=== PATIENT | female | born 1955 | race Caucasian/White ===

== ENCOUNTER 2018-03-30 10:28 | Emergency (ER) | payer OTHER, MEDICARE ==
[~2018-03-30] VITALS: Ht 154.9 cm; Wt 95.2 kg
[~2018-03-30 10:28] MED LIST: ASPI81CH PO; ASPI81EC; ATOR10; BUPR150T2; CARI350 PO; CYCL10 PO; DIPH25; DULO60 PO; GABA100 PO; GABA300 PO; GLIP10; GLIP5ER; HYDACE10B PO; HYDACE5 PO; IBUP800; IBUP800 PO; INSDET100; INSDET100 SC; INSDET100 SQ; INSUASPI; LISHYD2012 PO; LOVA40 PO; MAGCIT300 PO; METF500; METF500 PO; METF500C PO; METF850; MULVITA; Norco 10-325 T1 EACH PO; OLME20; OLME20 PO; PIOG15; PROACE100 PO; RANI150; RANI150 PO; RXDIPHSY; RXHYDACE PO; RXIBUP800 PO; RXPROACE PO; SERT50; SPIHYD; TRAZ50 PO; VERA80; [UNRECOGNIZED DRUG - OTHER]
[2018-03-30] MEDS ORDERED: Norco 5-325 Ta1 EACH PO (11:35)
== END 2018-03-30 11:39 | disposition home or self-care (01) ==
LOC: ER 10:28
DX: M54.5 Low back pain (principal); V49.50XA Passenger injured in collision with unspecified motor vehicles in traffic accident, initial encounter; Z88.5 Allergy status to narcotic agent; Z79.899 Other long term (current) drug therapy; Z79.82 Long term (current) use of aspirin; Z79.4 Long term (current) use of insulin; E11.9 Type 2 diabetes mellitus without complications; I10 Essential (primary) hypertension; Z87.891 Personal history of nicotine dependence
CPT/HCPCS: 72070; 72100; 99283-25

== ENCOUNTER → 2018-05-24 | Outpatient (CLI) | payer MEDICARE ==
[~2018-05-24] MED LIST changes: +Norco 5-325 Ta1 EACH PO
[2018-05-24 11:06] LABS: Source, Urine Clean Catch
[2018-05-24 12:40] LABS: Bilirubin, Urine Neg (Neg); Blood, Urine 5+ (Neg); Glucose Qualitative, Urine Neg (Neg); Ketones, Urine Neg (Neg); Leukocyte Esterase, Urine 3+ (Neg); Nitrite, Urine Neg (Neg); Protein, Urine 3+ (Neg); Urobilinogen, Urine NORM (Normal)
[2018-05-24 13:05] LABS: Appearance, Urine Hazy (Clear); Color, Urine Yellow (P-Yellow)
[2018-05-24 13:08] LABS: Bacteria Few /hpf; Red Blood Cells, Urine 25-50 /hpf (0-2); Squamous Epithelial Cells Few /hpf (Few); White Blood Cells, Urine 50-100 /hpf (0-5)
== END | disposition home or self-care (01) ==
LOC: LAB 11:03 → LAB SHORT 11:03 → EDSTATUS 13:02
PROVIDERS: Family Medicine
DX: N39.0 Urinary tract infection, site not specified (principal)
CPT/HCPCS: 81001

== ENCOUNTER 2018-09-05 11:48 | Inpatient (IN) | payer OTHER, MEDICARE ==
[~2018-09-05] VITALS: Ht 154.9 cm; Wt 96.8 kg
[~2018-09-05 11:48] MED LIST changes: +ASPI325EC PO; -ASPI81CH PO; -GABA100 PO; +GABA800 PO; +Glucophage1000 MG PO; -INSUASPI; +NOVOLOG FL100 UNIT/1 SC; -RANI150 PO; +TRAZ100 PO; -TRAZ50 PO; +Zantac150 MG PO
[2018-09-05 12:34] LABS: BASOPHILS ABSOLUTE AUTO 0.04 K/mm3 (0.00-0.23); BASOPHILS PERCENT AUTO 0 % (0-2); EOSINOPHILS ABSOLUTE AUTO 0.19 K/mm3 (0.00-0.68); EOSINOPHILS PERCENT AUTO 2 % (0-6); Hematocrit 39.1 % (33.0-51.0); Hemoglobin 11.9 g/dL (11.5-16.0); IMMATURE GRAN ABSOLUTE AUTO 0.02 K/mm3 (0.00-0.10); IMMATURE GRAN PERCENT AUTO 0 % (0-1); LYMPHOCYTES ABSOLUTE AUTO 3.69 K/mm3 (0.84-5.20); LYMPHOCYTES PERCENT AUTO 40 % (21-46); MONOCYTES ABSOLUTE AUTO 0.83 K/mm3 (0.16-1.47); MONOCYTES PERCENT AUTO 9 % (4-13); Mean Corpuscular HGB 26.9 pg (26.0-34.0); Mean Corpuscular HGB Conc 30.4 g/dL (31.5-36.5); Mean Corpuscular Volume 88 fL (80-100); Mean Platelet Volume 10.2 fL (9.1-12.4); NEUTROPHILS ABSOLUTE AUTO 4.41 K/mm3 (1.96-9.15); NEUTROPHILS PERCENT AUTO 48 % (41-73); Platelet Count 246 K/mm3 (150-400); RDW Standard Deviation 52.2 fL (35.1-46.3); Red Blood Cell Count 4.43 M/mm3 (3.80-5.20); White Blood Cell Count 9.18 K/mm3 (4.00-11.30)
[2018-09-05 13:01] LABS: Alanine Aminotransfer (ALT/SGP 16 U/L (12-78); Albumin, Blood 3.6 g/dL (3.4-5.0); Albumin/Globulin Ratio 1.1 (0.8-1.8); Alk Phos 57 U/L (50-136); Anion Gap 4 mmol/L (6-16); Aspartate Aminotrans (AST/SGOT 12 U/L (12-37); Bilirubin, Total 0.4 mg/dL (0.1-1.0); Blood Urea Nitrogen 18 mg/dL (8-24); Bun/Creatinine Ratio 19.9 (12.0-20.0); CO2, Blood 27 mmol/L (21-32); Chloride, Blood 108 mmol/L (98-108); Globulin, Blood 3.3 g/dL (2.2-4.0); Glomerular Filtration Rate >60 (60-); Glucose, Blood 162 mg/dL (70-99); Potassium, Blood 5.1 mmol/L (3.5-5.5); Sodium, Blood 139 mmol/L (136-145); Total Protein, Blood 6.9 g/dL (6.4-8.2); Troponin I <0.015 ng/mL (0.000-0.040)
[2018-09-05 14:17] LABS: U Amphetamine Screen Not Detected; U Barbituate Screen Not Detected; U Benzodiazapine Screen Not Detected; U Buprenorphine Screen Not Detected; U Cannabinoids Screen DETECTED; U Cocaine Screen Not Detected; U Methadone Screen Not Detected; U Methamphetamine Screen Not Detected; U Opiates Screen Not Detected; U Oxycodone Screen Not Detected; U Phencyclidine Screen Not Detected; U Propoxyphene Screen Not Detected
[2018-09-05] MEDS ORDERED: OXYB5 PO (15:41)
[2018-09-05] MEDS ORDERED: TRULICITY0.75 MG/0. SC (15:43)
[2018-09-05] MEDS ORDERED: Benazepril HCl10 MG PO (15:44)
[2018-09-05] MEDS ORDERED: ATOR20 PO (15:45)
[2018-09-05] MEDS ORDERED: HYDCHL12.5 PO (15:45)
[2018-09-05] MEDS ORDERED: DULO30 PO (15:46)
[2018-09-06 04:54] LABS: Hemoglobin 13.2 g/dL (11.5-16.0); Mean Corpuscular HGB 26.9 pg (26.0-34.0); Mean Corpuscular HGB Conc 30.7 g/dL (31.5-36.5); Mean Corpuscular Volume 88 fL (80-100); Mean Platelet Volume 10.6 fL (9.1-12.4); Platelet Count 288 K/mm3 (150-400); RDW Coefficient Variation 15.8 % (11.7-14.2); RDW Standard Deviation 51.1 fL (35.1-46.3)
[2018-09-06 05:19] LABS: Anion Gap 4 mmol/L (6-16); Blood Urea Nitrogen 14 mg/dL (8-24); Bun/Creatinine Ratio 18.3 (12.0-20.0); CO2, Blood 25 mmol/L (21-32); Calcium, Blood 9.3 mg/dL (8.5-10.1); Chloride, Blood 111 mmol/L (98-108); Cholesterol 136 mg/dL (50-200); Creatinine, Blood 0.76 mg/dL (0.40-1.00); Glomerular Filtration Rate >60 (60-); Glucose, Blood 167 mg/dL (70-99); Potassium, Blood 4.6 mmol/L (3.5-5.5); Sodium, Blood 140 mmol/L (136-145); Triglycerides 141 mg/dL (30-160); Very Low Density Lipoprot Chol 28 mg/dL (6-32)
[2018-09-06 05:21] LABS: CHOL/HDL RATIO 3.2; HDL Cholesterol 42 mg/dL (>39); LDL/HDL RATIO 1.6; Low Density Lipoprotein Chol 66 mg/dL (0-110)
--- NOTE | 2018-09-06 05:26 | NUR ---
SHIFT SUMMARY PATIENT IS ALERT AND ORIENTED. PATIENT ARRIVED TO ROOM VIA STRETCHER. ON ROOM AIR. PATIENT AMBULATES WITH 1 ASSIST AND WALKER. PER ER REPORT PATIENT FELL OUT OF BED, SO BED ALARM HAS BEEN ON. PATIENT IS FORGETFUL WHEN ASKING FOR HELP TO GET OUT OF BED. PT DOES HAVE SLIGHT RIGHT SIDED WEAKNESS. PT IS EMOTIONAL OFF AND ON WHEN TALKING ABOUT WHY SHE CAME TO THE HOSPITAL. VITALS STABLE. NO ACUTE CHANGES NOTED.
--- NOTE | 2018-09-06 14:50 | NUR ---
NOTIFIED DR PANDEY OF ELEVATED BP AND NO PRN BP MEDICATIONS, NO NEW ORDERS AT THIS TIME. WILL CONTINUE TO MONITOR.
--- NOTE | 2018-09-06 16:02 | NUR ---
SHIFT SUMMARY PT A&OX4, FORGETFUL AND IMPULSIVE. UP IN [place] FOR MEALS. 1 PERSON ASSIST WITH FWW AND GAITBELT. RIGHT POWER LINEWORKER AND RLE WEAK, RIGHT SIDE DELAYED. PT RERPOTS CHRONIC LOWER BACK PAIN AND HIP PAIN, MEDICATED x1 WITH TYLNEOL WITH POSITIVE RESULTS. PT DENIES SOB AND N/V. PT WORKED WITH PT/OT DURING SHIFT. PLANS TO D/C TO SNF. ELEVATED BP NOTIFIED DR PANDEY, NO NEW ORDERS. OTHER VSS. NO OTHER ACUTE CHAGNES NOTED DURING SHFIT. WILL CONTINUE TO MONITOR UNTIL REPORT GIVEN TO ONCOMING RN.
--- NOTE | 2018-09-06 18:29 | NUR ---
SHE C/O HER LAC SALINE LOCK HURTING HER. I FLUSHED IT BUT IT LEAKED. SL DC'D. PROCEDURE NURSE AGREED TO START A NEW ONE. WE HAVE A NEW ORDER THIS AFTERNOON FOR PRN IV APRESOLINE FOR SBP GREATER THAN 185. LAST SBP 174. SHE IS AMBULATORY WITH 1 ASSIST. SHE REFUSED HER LOVENOX BUT HAS AGREED TO TRY JESSICA HOSE IN THE MORNING. I MEASURED HER CALF AND PUT THE PKG OF TEDS IN THE ROOM. CBG'S STABLE. SHE ATE ALL HER DINNER.
--- NOTE | 2018-09-06 18:40 | NUR ---
SHE REFUSED FOR THE PROCEDURE NURSE TO PUT A SALINE LOCK BACK IN HER. I WILL SEE IF IS STILL ON SO THAT I CAN NOTIFY HIM.
--- NOTE | 2018-09-06 18:44 | NUR ---
I SPOKE WITH . APRESOLINE CHANGED TO PO.
--- NOTE | 2018-09-07 07:15 | NUR ---
a+o with no obvious s/sx of stroke, call light in reach, walking in room, no IV room air, wants to go home with help from neighbors
--- NOTE | 2018-09-07 19:07 | NUR ---
SHIFT SUMMARY: NO ACUTE CHANGES TO REPORT THIS SHIFT. PT A&O; CALM AND COOPERATIVE WITH CARE; PT UP c 1 ASSIST c FWW. PT & OT EVAL & TREAT CONTINUING. REPORT GIVEN TO ONCOMING RN.
--- NOTE | 2018-09-08 19:32 | NUR ---
SHIFT SUMMARY: NO ACUTE CHANGES TO REPORT THIS SHIFT. PT A&O; CALM AND COOPERATIVE WITH CARE. PT HX CVA c R SIDE WEAKNESS; DEFICITS VERY MILD PER ASSESSMENT. MEDICATED FOR PAIN PER EMAR. PT UP WITH SBA. P&OT EVAL&TREAT. REPORT GIVEN TO ONCOMING RN.
--- NOTE | 2018-09-09 05:44 | NUR ---
09/09/18 0535 AWAKENED AT 0500 AND ASSISTED TO BATHROOM FOR VOIDING. C/O SEVERE "10" LEVEL LOW BACK PAIN AND REQUESTED TYLENOL. SEE MAR FOR MEDS GIVEN. AFTER SHE TOOK TYLENOL SHE REQUESTED STRONGER PAIN MED. INFORMED HER THAT RN WOULD PAGE MD ABOUT MEDS. RN PAGED HOSPITALIST SPIRITUAL COUNSELOR. MAILBOW IS FULL AND RN WILL TRY LATER. UPON RETURNING TO HER ROOM PT WAS SLEEPING.
[2018-09-09] MEDS ORDERED: DOCU100 PO (17:28)
[2018-09-09] MEDS ORDERED: CLOP75 PO (17:28)
[2018-09-09] MEDS ORDERED: GAVILAX17 GM PO (17:29)
[2018-09-09] MEDS ORDERED: LIDO700A20 TOP (17:31)
--- NOTE | 2018-09-09 18:16 | NUR ---
PATIENT DISCHARGE: PATIENT DISCHARGED/TRANSFER TO HOME HEALTH THIS SHIFT. MEDICATION RECONCILIATION COMPLETED; MED LIST FAXED TO [facility]. DISCHARGE EDUCATION COMPLETED WITH PATIENT AND SPOUSE. PATIENT TRANSPORTED TO EXIT BY [facility] STAFF WITH WHEELCHAIR AT 1815. PATIENT DEPARTED [facility] VIA PRIVATE AUTO.
== END 2018-09-09 18:15 | disposition home health service (06) | DRG 65 ==
LOC: ER 11:48 → MEDS 11:49 → ENPENDDIS 09-09 16:18 → MEDS 09-09 18:15
PROVIDERS: Emergency Medicine; ADMIT Hospitalist
DX: I63.9 Cerebral infarction, unspecified (principal); G81.91 Hemiplegia, unspecified affecting right dominant side; E11.40 Type 2 diabetes mellitus with diabetic neuropathy, unspecified; E78.5 Hyperlipidemia, unspecified; I10 Essential (primary) hypertension; F32.9 Major depressive disorder, single episode, unspecified; E66.01 Morbid (severe) obesity due to excess calories; Z68.37 Body mass index [BMI] 37.0-37.9, adult; K76.0 Fatty (change of) liver, not elsewhere classified; S39.012A Strain of muscle, fascia and tendon of lower back, initial encounter; K59.00 Constipation, unspecified; G47.00 Insomnia, unspecified
CPT/HCPCS: 36415; 70496; 70498; 70551; 80048; 80053; 80061; 82947; 84484; 85025; 85027; 93005; 93010; 93306; 97110; 97112; 97116; 97162; 97166; 97530; 97535; 99285-25; A9270; G0378; J1650; Q9967

== ENCOUNTER 2020-02-11 02:46 | Emergency (ER) | payer MEDICARE ==
[~2020-02-11] VITALS: Ht 154.9 cm; Wt 89.8 kg
[~2020-02-11 02:46] MED LIST changes: +ATOR20 PO; +Benazepril HCl10 MG PO; +CLOP75 PO; +DOCU100 PO; +DULO30 PO; +GAVILAX17 GM PO; +HYDCHL12.5 PO; +LIDO700A20 TOP; +OXYB5 PO; +TRULICITY0.75 MG/0. SC
[2020-02-11 04:18] LABS: BASOPHILS ABSOLUTE AUTO 0.08 K/mm3 (0.00-0.23); BASOPHILS PERCENT AUTO 1 % (0-2); EOSINOPHILS ABSOLUTE AUTO 0.21 K/mm3 (0.00-0.68); EOSINOPHILS PERCENT AUTO 2 % (0-6); Hematocrit 42.8 % (33.0-51.0); Hemoglobin 12.8 g/dL (11.5-16.0); IMMATURE GRAN ABSOLUTE AUTO 0.06 K/mm3 (0.00-0.10); IMMATURE GRAN PERCENT AUTO 0 % (0-1); LYMPHOCYTES ABSOLUTE AUTO 3.51 K/mm3 (0.84-5.20); LYMPHOCYTES PERCENT AUTO 26 % (21-46); MONOCYTES ABSOLUTE AUTO 1.23 K/mm3 (0.16-1.47); MONOCYTES PERCENT AUTO 9 % (4-13); Mean Corpuscular HGB 26.7 pg (26.0-34.0); Mean Corpuscular HGB Conc 29.9 g/dL (31.5-36.5); Mean Corpuscular Volume 89 fL (80-100); NEUTROPHILS PERCENT AUTO 63 % (41-73); RDW Coefficient Variation 14.3 % (11.7-14.2); RDW Standard Deviation 46.9 fL (35.1-46.3); White Blood Cell Count 13.79 K/mm3 (4.00-11.30)
[2020-02-11 04:20] LABS: Mean Platelet Volume 10.2 fL (9.1-12.4); Platelet Count 317 K/mm3 (150-400)
[2020-02-11 04:22] LABS: Alanine Aminotransfer (ALT/SGP 14 U/L (12-78); Albumin, Blood 3.9 g/dL (3.4-5.0); Alk Phos 65 U/L (50-136); Anion Gap 5 mmol/L (6-16); Aspartate Aminotrans (AST/SGOT 8 U/L (12-37); Bilirubin, Total 0.3 mg/dL (0.1-1.0); Blood Urea Nitrogen 17 mg/dL (8-24); Bun/Creatinine Ratio 22.7 (12.0-20.0); CO2, Blood 28 mmol/L (21-32); Calcium, Blood 9.5 mg/dL (8.5-10.1); Chloride, Blood 107 mmol/L (98-108); Creatinine, Blood 0.75 mg/dL (0.40-1.00); Globulin, Blood 3.8 g/dL (2.2-4.0); Glomerular Filtration Rate >60 (60-); Glucose, Blood 167 mg/dL (70-99); Potassium, Blood 4.7 mmol/L (3.5-5.5); Sodium, Blood 140 mmol/L (136-145); Total Protein, Blood 7.7 g/dL (6.4-8.2)
[2020-02-11] MEDS ORDERED: HYDR1TAB94 PO (06:07)
[2020-02-11] MEDS ORDERED: Colace250 MG PO (06:07)
[2020-02-11] MEDS ORDERED: LIDO700A20 TOP (06:08)
== END 2020-02-11 06:39 | disposition home or self-care (01) ==
LOC: ER 02:46
PROVIDERS: Emergency Medicine
DX: R07.81 Pleurodynia (principal); M54.6 Pain in thoracic spine; M54.5 Low back pain; I10 Essential (primary) hypertension; E78.5 Hyperlipidemia, unspecified; F32.9 Major depressive disorder, single episode, unspecified; E11.40 Type 2 diabetes mellitus with diabetic neuropathy, unspecified; Z79.899 Other long term (current) drug therapy; Z79.84 Long term (current) use of oral hypoglycemic drugs; Z79.82 Long term (current) use of aspirin; Z88.5 Allergy status to narcotic agent; Z86.73 Personal history of transient ischemic attack (TIA), and cerebral infarction without residual deficits; Z87.891 Personal history of nicotine dependence; W18.30XA Fall on same level, unspecified, initial encounter
CPT/HCPCS: 70450; 71101; 72070; 72100; 72125; 80053; 85025; 96374; 99284-25; A9270; J2270

== ENCOUNTER 2020-11-02 07:51 | Emergency (ER) | payer MEDICARE ==
[~2020-11-02] VITALS: Ht 152.4 cm; Wt 85.3 kg
[~2020-11-02 07:51] MED LIST changes: +Colace250 MG PO; +HYDR1TAB94 PO
[2020-11-02] MEDS ORDERED: Norco 5-325 Ta1 EACH PO (11:25)
== END 2020-11-02 11:38 | disposition home or self-care (01) ==
LOC: ER 07:51
DX: S52.571A Other intraarticular fracture of lower end of right radius, initial encounter for closed fracture (principal); S52.611A Displaced fracture of right ulna styloid process, initial encounter for closed fracture; E11.9 Type 2 diabetes mellitus without complications; I10 Essential (primary) hypertension; Z87.891 Personal history of nicotine dependence; Z88.5 Allergy status to narcotic agent; Z79.82 Long term (current) use of aspirin; Z79.4 Long term (current) use of insulin; Z79.899 Other long term (current) drug therapy; Z79.02 Long term (current) use of antithrombotics/antiplatelets; Y93.01 Activity, walking, marching and hiking; W10.9XXA Fall (on) (from) unspecified stairs and steps, initial encounter
CPT/HCPCS: 25605; 73100; 73110; 96374-59; 96375-59; 96376-59; 99152; 99283-25; J1170; J2405; J2704; J7030

== ENCOUNTER → 2021-06-29 | Outpatient (CLI) | payer MEDICARE ==
[2021-06-29 11:05] LABS: Source, Urine Clean Catch
[2021-06-29 12:30] LABS: Appearance, Urine Clear (Clear); Bilirubin, Urine Neg (Neg); Blood, Urine Neg (Neg); Color, Urine Yellow (P-Yellow); Glucose Qualitative, Urine Neg (Neg); Ketones, Urine Neg (Neg); Leukocyte Esterase, Urine Neg (Neg); Nitrite, Urine Pos (Neg); Protein, Urine 1+ (Neg); Specific Gravity, Urine 1.015 (1.003-1.022); Urobilinogen, Urine NORM (Normal)
[2021-06-29 12:49] LABS: White Blood Cells, Urine 0-2 /hpf (0-5)
[2021-06-29 12:50] LABS: Bacteria Many /hpf; Red Blood Cells, Urine 0-2 /hpf (0-2); Squamous Epithelial Cells Few /hpf (Few)
== END | disposition home or self-care (01) ==
LOC: LAB SHORT 09:19
PROVIDERS: Student in an Organized Health Care Education/Training Program
DX: R35.89 Other polyuria (principal)
CPT/HCPCS: 81001; 87077; 87086; 87186

== ENCOUNTER → 2022-05-25 | Outpatient (CLI) | payer MEDICARE | END | disposition home or self-care (01) | LOC: LAB 08:48 → LAB SHORT 08:48 | DX: R35.89 Other polyuria (principal) | CPT/HCPCS: 87077; 87086; 87186 ==

== ENCOUNTER → 2023-01-20 | Outpatient (CLI) | payer MEDICARE ==
[2023-01-20 10:21] LABS: BASOPHILS ABSOLUTE AUTO 0.04 K/mm3 (0.00-0.23); BASOPHILS PERCENT AUTO 0 % (0-2); EOSINOPHILS ABSOLUTE AUTO 0.08 K/mm3 (0.00-0.68); EOSINOPHILS PERCENT AUTO 1 % (0-6); Hematocrit 35.9 % (33.0-51.0); Hemoglobin 11.2 g/dL (11.5-16.0); IMMATURE GRAN ABSOLUTE AUTO 0.02 K/mm3 (0.00-0.10); IMMATURE GRAN PERCENT AUTO 0 % (0-1); LYMPHOCYTES ABSOLUTE AUTO 3.68 K/mm3 (0.84-5.20); LYMPHOCYTES PERCENT AUTO 37 % (21-46); MONOCYTES ABSOLUTE AUTO 0.75 K/mm3 (0.16-1.47); MONOCYTES PERCENT AUTO 8 % (4-13); Mean Corpuscular HGB 27.6 pg (26.0-34.0); Mean Corpuscular HGB Conc 31.2 g/dL (31.5-36.5); Mean Corpuscular Volume 88 fL (80-100); Mean Platelet Volume 10.7 fL (9.1-12.4); NEUTROPHILS ABSOLUTE AUTO 5.44 K/mm3 (1.96-9.15); NEUTROPHILS PERCENT AUTO 54 % (41-73); Platelet Count 337 K/mm3 (150-400); RDW Coefficient Variation 16.1 % (11.7-14.2); RDW Standard Deviation 52.1 fL (35.1-46.3); Red Blood Cell Count 4.06 M/mm3 (3.80-5.20); White Blood Cell Count 10.01 K/mm3 (4.00-11.30)
[2023-01-20 10:26] LABS: Bilirubin, Total 0.4 mg/dL (0.1-1.0); Bun/Creatinine Ratio 28.7 (12.0-20.0); Calcium, Blood 9.9 mg/dL (8.5-10.1); Creatinine, Blood 1.08 mg/dL (0.40-1.00); Globulin, Blood 3.9 g/dL (2.2-4.0); Potassium, Blood 5.5 mmol/L (3.5-5.5); Total Protein, Blood 7.9 g/dL (6.4-8.2)
== END ==
LOC: LAB SHORT 09:30 → LAB 09:30
PROVIDERS: Nurse Practitioner Family
DX: R06.02 Shortness of breath (principal)
CPT/HCPCS: 80053; 85025; 85379

== ENCOUNTER → 2023-01-24 | Outpatient (CLI) | payer MEDICARE ==
[2023-01-24 14:59] LABS: Stool Occult Bld Immuno 1 Negative (NEGATIVE)
== END | disposition home or self-care (01) ==
LOC: LAB SHORT 11:46 → LAB 11:46
PROVIDERS: Student in an Organized Health Care Education/Training Program
DX: D64.9 Anemia, unspecified (principal); R00.0 Tachycardia, unspecified
CPT/HCPCS: 82274; 87077; 87086; 87186

== ENCOUNTER 2023-10-16 12:14 | Inpatient (IN) | payer MEDICARE ==
[~2023-10-16] VITALS: Ht 152.4 cm; Wt 68.9 kg
[2023-10-16] MEDS ORDERED: Ketorolac Tromethamine 15mg Vial IV ONE (12:20)
[2023-10-16 12:54] LABS: BASOPHILS ABSOLUTE AUTO 0.02 K/mm3 (0.00-0.23); BASOPHILS PERCENT AUTO 0 % (0-2); EOSINOPHILS PERCENT AUTO 0 % (0-6); Hematocrit 33.8 % (33.0-51.0); Hemoglobin 10.6 g/dL (11.5-16.0); IMMATURE GRAN ABSOLUTE AUTO 0.07 K/mm3 (0.00-0.10); IMMATURE GRAN PERCENT AUTO 0 % (0-1); LYMPHOCYTES ABSOLUTE AUTO 1.23 K/mm3 (0.84-5.20); LYMPHOCYTES PERCENT AUTO 7 % (21-46); MONOCYTES ABSOLUTE AUTO 0.96 K/mm3 (0.16-1.47); MONOCYTES PERCENT AUTO 6 % (4-13); Mean Corpuscular HGB 28.2 pg (26.0-34.0); Mean Corpuscular HGB Conc 31.4 g/dL (31.5-36.5); Mean Corpuscular Volume 90 fL (80-100); Mean Platelet Volume 11.1 fL (9.1-12.4); NEUTROPHILS ABSOLUTE AUTO 14.56 K/mm3 (1.96-9.15); NEUTROPHILS PERCENT AUTO 87 % (41-73); Platelet Count 343 K/mm3 (150-400); RDW Coefficient Variation 14.9 % (11.7-14.2); RDW Standard Deviation 48.9 fL (35.1-46.3); Red Blood Cell Count 3.76 M/mm3 (3.80-5.20); White Blood Cell Count 16.84 K/mm3 (4.00-11.30)
[2023-10-16 13:16] LABS: Albumin, Blood 3.5 g/dL (3.4-5.0); Albumin/Globulin Ratio 0.8 (0.8-1.8); Bilirubin, Total 0.4 mg/dL (0.1-1.0); Bun/Creatinine Ratio 39.1 (12.0-20.0); Calcium, Blood 9.1 mg/dL (8.5-10.1); Creatinine, Blood 0.97 mg/dL (0.40-1.00); Globulin, Blood 4.2 g/dL (2.2-4.0); Total Protein, Blood 7.7 g/dL (6.4-8.2)
[2023-10-16] MEDS ORDERED: Piperacillin/Tazobactam Sod 4.5 GM in NS 100 ML IV ONE (15:10)
[2023-10-16] MEDS ORDERED: Ondansetron HCl 2 MG / ML 2ML Vial IV ONE ×2 (15:50→18:55)
[2023-10-16] MEDS ORDERED: Ketorolac Tromethamine 30mg Vial IV ONE (15:50)
[2023-10-16] MEDS ORDERED: FentaNYL Citrate 50 MCG/ML 2 ML Injection IV ONE ×3 (15:50→21:30)
[2023-10-16] MEDS ORDERED: Ondansetron HCl 2 MG / ML 2ML Vial IV PRN (21:25)
[2023-10-16] MEDS ORDERED: FentaNYL Citrate 50 MCG/ML 2 ML Injection IV PRN (21:30)
[2023-10-16] MEDS ORDERED: NS 1,000 ML IV ONE (21:30)
[2023-10-16] MEDS ORDERED: NS 1,000 ML IV SCH (21:30)
[2023-10-16] MEDS ORDERED: HydrALAZINE HCl 20 MG / ML 1ML Vial IV PRN (21:30)
[2023-10-16 22:20] VITALS: BP 118/68
[2023-10-17] MEDS ORDERED: Piperacillin/Tazobactam Sod 3.375 GM in NS 100 ML IV SCH
[2023-10-17] MEDS ORDERED: Insulin Human Lispro 100 Units/ML 3ML Syringe SC SCH
[2023-10-17 04:12] VITALS: BP 114/93
--- NOTE | 2023-10-17 04:56 | NUR ---
SHIFT SUMMARY FÉLIX WAS ALERT AND FULLY ORIENTED WHEN SHE ARRIVED FROM THE ED AT AROUND 2300 PT REQURED MEDICATION FOR PAIN WHEN SHE ARRIVED. ADMIT COMPLETE. PT SLEPT SOUNDLY T/O THE NIGHT. PT ABLE TO AMBULATE SHORT DISTANCES W/ FWW &GB. NO ACUTE EVENTS TONIGHT, PT AWAITING XFER TO [facility] FOR ERCP. PT RESTING.
[2023-10-17 05:25] LABS: BASOPHILS ABSOLUTE AUTO 0.02 K/mm3 (0.00-0.23); BASOPHILS PERCENT AUTO 0 % (0-2); EOSINOPHILS ABSOLUTE AUTO 0.01 K/mm3 (0.00-0.68); EOSINOPHILS PERCENT AUTO 0 % (0-6); Hematocrit 31.2 % (33.0-51.0); Hemoglobin 9.6 g/dL (11.5-16.0); IMMATURE GRAN ABSOLUTE AUTO 0.05 K/mm3 (0.00-0.10); IMMATURE GRAN PERCENT AUTO 0 % (0-1); LYMPHOCYTES ABSOLUTE AUTO 2.96 K/mm3 (0.84-5.20); LYMPHOCYTES PERCENT AUTO 18 % (21-46); MONOCYTES PERCENT AUTO 11 % (4-13); Mean Corpuscular HGB 27.8 pg (26.0-34.0); Mean Corpuscular HGB Conc 30.8 g/dL (31.5-36.5); Mean Corpuscular Volume 90 fL (80-100); Mean Platelet Volume 11.8 fL (9.1-12.4); NEUTROPHILS ABSOLUTE AUTO 11.42 K/mm3 (1.96-9.15); NEUTROPHILS PERCENT AUTO 70 % (41-73); Platelet Count 276 K/mm3 (150-400); RDW Coefficient Variation 15.1 % (11.7-14.2); RDW Standard Deviation 49.6 fL (35.1-46.3); Red Blood Cell Count 3.45 M/mm3 (3.80-5.20); White Blood Cell Count 16.26 K/mm3 (4.00-11.30)
[2023-10-17 05:42] LABS: Bun/Creatinine Ratio 37.6 (12.0-20.0); Calcium, Blood 8.6 mg/dL (8.5-10.1); Creatinine, Blood 1.25 mg/dL (0.40-1.00)
[2023-10-17 05:45] LABS: International Normalized Ratio 0.92; Prothrombin Time Results 9.9 Sec (9.7-11.5)
[2023-10-17 07:16] VITALS: BP 109/59
[2023-10-17] MEDS ORDERED: Lisinopril 5 MG Tab PO SCH (09:00)
[2023-10-17] MEDS ORDERED: Famotidine 10 MG/ML 2ML Vial IV SCH (09:00)
[2023-10-17] MEDS ORDERED: Enoxaparin 40 MG/0.4 ML SYR SC SCH (09:00)
[2023-10-17] MEDS ORDERED: Aspirin 81 MG Chew PO SCH (09:00)
[2023-10-17] MEDS ORDERED: Atorvastatin 10 MG Tab PO SCH (09:00)
--- NOTE | 2023-10-17 14:15 | NUR ---
SUMMARY STILL WAITING FOR BED AVAILABILITY AT [facility]. IV FENTANYL FOR PAIN CONTROL. OCC NAUSEATED, NO EMESIS. NPO. IVF + ABX PER ORDERS. SBA TO RESTROOM. USES CALL LIGHT APPROPRIATELY.
[2023-10-17 14:33] VITALS: BP 127/72
--- NOTE | 2023-10-17 15:29 | NUR ---
ASSUMED CARE OF PATIENT AT THIS TIME. PT SLEEPING IN BED. NO S/S DISTRESS. RESP EASY. CALL LIGHT IN REACH. WILL CONT TO MONITOR.
[2023-10-17 19:33] VITALS: BP 114/71
--- NOTE | 2023-10-17 20:00 | NUR ---
CALL FROM TELEMETRY. AT 1999 THIS RN RECEIVED T/C FROM TELEMETRY STATING PT HAD A 7 BEAT RUN OF VTACH. THIS RN IMMEDIATELY VISUALIZED PT WHO WAS AMBULATING BACK FROM THE BATHROOM WITH STAFF. PT DENIED SOB, CP OR PRESSURE. EDUCATION PROVIDED TO PT TO NOTIFY STAFF IF SX OCCUR. CALL LIGHT IN REACH.
--- NOTE | 2023-10-17 23:06 | NUR ---
TRANSFER FOLLOW UP: 2239: CALL PLACED TO [facility]; SPOKE W/MASHA. PER MASHA, CALL WAS MADE THIS AM TO BHARGAV GARAY WHO STATED PT HAD ALREADY BEEN TX, SO PT WAS REMOVED FROM WAITLIST. CLARIFIED W/MASHA THAT PT WAS TX TO INPT FLOOR AND IS STILL NEEDING TX. PT PLACED BACK ON WAITLIST. NO CURRENT BEDS AVAILABLE, PT ON WAITLIST, ESTIMATED WAIT 48 HRS.
--- NOTE | 2023-10-17 23:16 | NUR ---
TX UPDATE: 2249 CALL PLACED TO [facility]-NO BEDS AVALILABLE, NO WAITLIST [facility]-ONLY ACCEPTING CRITICAL PTS, NO BEDS AVAIL AT [facility] [address] [facility]-NO BEDS AVAILABLE AT THIS FACILITY, BED IS AVAILABLE AT [facility]). PT DECLINED TX TO [facility], STATES SHE PREFERS ONLY [place] OR [place] R/T CLOSER LOCATIONS TO HOME.
--- NOTE | 2023-10-18 01:40 | NUR ---
CALL FROM TELEMETRY. AT 0140 THIS RN RECEIVED T/C FROM TELEMETRY STATING PT HAD A 10 BEAT RUN OF VTACH. THIS RN WAS WITH PT AT TIME OF CALL, PT REPORTED ANXIOUSNESS REGARDING WAITLIST FOR TRANSFER BED TO ANOTHER FACILITY. PT DENIED SOB, PAIN OR PRESSURE. REINFORCED PT TO CALL STAFF IF SX OCCUR. CALL LIGHT IN REACH.
[2023-10-18 04:24] VITALS: BP 117/70
--- NOTE | 2023-10-18 07:11 | NUR ---
SHIFT SUMMARY NOC. PT A/O X4. PT MEDICATED FOR PAIN MULTIPLE TIMES WITH SOME REPORTED RELIEF. PT MEDICATED FOR NAUSEA WELL. PT ON TELE, NOTIFIED ONCOMMING NURSE REGARDING EVENTS (SEE NOTES). PT VOIDING URINE AND REPORTS URGENCY. PT RESTED FOR BREIF PERIODS WITH EYES CLOSED AND CALL LIGHT IN REACH.
[2023-10-18 07:19] VITALS: BP 129/65
--- NOTE | 2023-10-18 10:21 | NUR ---
PT UPDATED ON [facility] TRANSFER FOR POSSIBLE BED AVAILABILITY THIS AFTERNOON.
[2023-10-18 12:42] LABS: BASOPHILS ABSOLUTE AUTO 0.05 K/mm3 (0.00-0.23); BASOPHILS PERCENT AUTO 0 % (0-2); EOSINOPHILS ABSOLUTE AUTO 0.02 K/mm3 (0.00-0.68); EOSINOPHILS PERCENT AUTO 0 % (0-6); Hematocrit 31.1 % (33.0-51.0); Hemoglobin 9.4 g/dL (11.5-16.0); IMMATURE GRAN ABSOLUTE AUTO 0.04 K/mm3 (0.00-0.10); IMMATURE GRAN PERCENT AUTO 0 % (0-1); LYMPHOCYTES ABSOLUTE AUTO 2.75 K/mm3 (0.84-5.20); LYMPHOCYTES PERCENT AUTO 22 % (21-46); MONOCYTES ABSOLUTE AUTO 1.34 K/mm3 (0.16-1.47); MONOCYTES PERCENT AUTO 11 % (4-13); Mean Corpuscular HGB 27.9 pg (26.0-34.0); Mean Corpuscular HGB Conc 30.2 g/dL (31.5-36.5); Mean Corpuscular Volume 92 fL (80-100); NEUTROPHILS ABSOLUTE AUTO 8.07 K/mm3 (1.96-9.15); NEUTROPHILS PERCENT AUTO 66 % (41-73); Platelet Count 242 K/mm3 (150-400); Red Blood Cell Count 3.37 M/mm3 (3.80-5.20); White Blood Cell Count 12.27 K/mm3 (4.00-11.30)
[2023-10-18 13:15] LABS: Bun/Creatinine Ratio 36.5 (12.0-20.0); Calcium, Blood 8.6 mg/dL (8.5-10.1); Creatinine, Blood 1.26 mg/dL (0.40-1.00); Magnesium, Blood 2.7 mg/dL (1.6-2.4); Potassium, Blood 4.8 mmol/L (3.5-5.5)
--- NOTE | 2023-10-18 13:47 | NUR ---
CALLED [facility] FOR BED AVAILABILITY UPDATE AND TRANSFER CENTER VERBALIZED NO BEDS YET. UPDATED PT.
[2023-10-18 14:11] VITALS: BP 136/70
--- NOTE | 2023-10-18 16:28 | NUR ---
[facility] CALLED WITH AN UPDATE. COORDINATOR VERBALIZED THERE MAY BE BED AVAILABILITY AT [place] THIS EVENING.
--- NOTE | 2023-10-18 16:29 | NUR ---
SHIFT SUMMARY PT STILL WAITING FOR BED AVAILABILITY TO BE TRANSFERRED. FENTANYL FOR PAIN CONTROL. NPO. IVF + ABX PER ORDERS. SBA WHEN OOB. VSS. PT CAN BE ANXIOUS AND TEARFUL AT TIMES, SUPPORT PROVIDED PRN. PT USES CALL LIGHT APPROPRIATELY.
[2023-10-18 19:39] VITALS: BP 126/63
--- NOTE | 2023-10-19 01:08 | NUR ---
UPDATE GIVEN TO TRANSFER CENTER. T/C RECEIVED FROM [facility]SF[facility]. UPDATE ON PT'S CLINICAL STATUS GIVEN TO STAFF MEMBER, JON. STATUS OF BED PLACEMENT STILL PENDING AT THIS TIME.
[2023-10-19 02:09] VITALS: BP 154/77
--- NOTE | 2023-10-19 05:53 | NUR ---
SHIFT SUMMARY NOC. PT A/O X4. PT MEDICATED FOR PAIN WITH SOME REPORTED RELIEF. PT HAD A BM THIS SHIFT WHICH ALSO IMPROVED PAIN. PT VOIDING URINE AND NPO STATUS. PT C/O NAUSEA AND MEDICATED WITH REPORTED RELIEF. PT ON TELE WITH NO EVENTS REPORTED. PT DECLINED 1 UNIT OF INSULIN COVERAGE FOR BG OF 152 THIS AM. PT STILL ON WAITLIST FOR A TRANSFER BED, NO NEW UPDATE SINCE LAST NOTE. PT RESTED WITH EYES CLOSED FOR BRIEF PERIODS. CALL LIGHT IN REACH.
[2023-10-19 07:13] VITALS: BP 147/86
--- NOTE | 2023-10-19 11:25 | NUR ---
TRANSFER UPDATE: [facility] CALLED THIS AM, STATES PT IS STILL ON THEIR WAITING LIST, NO BEDS AVAILABLE CURRENTLY AND WILL CHECK BACK IN LATER. PT IS ALSO ON THE WAITING LIST FOR [facility].
[2023-10-19 12:37] LABS: BASOPHILS ABSOLUTE AUTO 0.03 K/mm3 (0.00-0.23); BASOPHILS PERCENT AUTO 0 % (0-2); EOSINOPHILS ABSOLUTE AUTO 0.01 K/mm3 (0.00-0.68); EOSINOPHILS PERCENT AUTO 0 % (0-6); Hematocrit 32.7 % (33.0-51.0); Hemoglobin 9.6 g/dL (11.5-16.0); IMMATURE GRAN ABSOLUTE AUTO 0.04 K/mm3 (0.00-0.10); IMMATURE GRAN PERCENT AUTO 0 % (0-1); LYMPHOCYTES ABSOLUTE AUTO 2.06 K/mm3 (0.84-5.20); LYMPHOCYTES PERCENT AUTO 19 % (21-46); MONOCYTES ABSOLUTE AUTO 0.91 K/mm3 (0.16-1.47); MONOCYTES PERCENT AUTO 8 % (4-13); Mean Corpuscular HGB 27.7 pg (26.0-34.0); Mean Corpuscular HGB Conc 29.4 g/dL (31.5-36.5); Mean Corpuscular Volume 95 fL (80-100); NEUTROPHILS ABSOLUTE AUTO 8.02 K/mm3 (1.96-9.15); NEUTROPHILS PERCENT AUTO 72 % (41-73); Platelet Count 295 K/mm3 (150-400); RDW Coefficient Variation 15.4 % (11.7-14.2); RDW Standard Deviation 52.9 fL (35.1-46.3); Red Blood Cell Count 3.46 M/mm3 (3.80-5.20); White Blood Cell Count 11.07 K/mm3 (4.00-11.30)
[2023-10-19 13:00] LABS: Albumin, Blood 3.2 g/dL (3.4-5.0); Albumin/Globulin Ratio 0.8 (0.8-1.8); Bilirubin, Total 0.7 mg/dL (0.1-1.0); Bun/Creatinine Ratio 37.1 (12.0-20.0); Calcium, Blood 8.6 mg/dL (8.5-10.1); Creatinine, Blood 1.05 mg/dL (0.40-1.00); Globulin, Blood 3.8 g/dL (2.2-4.0); Potassium, Blood 4.3 mmol/L (3.5-5.5)
[2023-10-19] MEDS ORDERED: Aa 4.25%/Calcium/Lytes/D5w 1,000 ML IV SCH (13:30)
[2023-10-19] MEDS ORDERED: DULoxetine HCL 60 MG Capsule DR PO ONE (13:30)
[2023-10-19] MEDS ORDERED: HydrOXYzine Pamoate 25 MG Cap PO PRN (13:50)
[2023-10-19] MEDS ORDERED: Gabapentin 300 MG Cap PO SCH (14:00)
[2023-10-19 15:04] VITALS: BP 167/90
[2023-10-19 15:06] VITALS: BP 167/90
[2023-10-19 15:51] VITALS: BP 167/90
--- NOTE | 2023-10-19 16:51 | NUR ---
163 report called to mike, accepting rn, at [facility] in [facility]. pt reports constant abd pain 7-01/03. pt tearful, banging fists on rails as states she is so thirtsy she cant take it anymore. pt appears to sleep after dose of pain meds. up to commode with 1 person assist passing loose brown stools and clear sherman urine. discharged with ambulance transport crew and daughter at bedside
[2023-10-19] MEDS ORDERED: DULoxetine HCL 30 MG Cap DR PO SCH (21:00)
[2023-10-20] MEDS ORDERED: DULoxetine HCL 60 MG Capsule DR PO SCH (09:00)
== END 2023-10-19 16:39 | disposition short-term general hospital (02) | DRG 446 ==
LOC: ER 12:14 → SURS 21:58
PROVIDERS: Internal Medicine; Nurse Practitioner Acute Care; Physician Assistant; ADMIT Internal Medicine
DX: K80.71 Calculus of gallbladder and bile duct without cholecystitis with obstruction (principal); I10 Essential (primary) hypertension; E11.9 Type 2 diabetes mellitus without complications; K21.9 Gastro-esophageal reflux disease without esophagitis; E78.5 Hyperlipidemia, unspecified; F06.4 Anxiety disorder due to known physiological condition; Z86.73 Personal history of transient ischemic attack (TIA), and cerebral infarction without residual deficits; Z88.5 Allergy status to narcotic agent; Z79.84 Long term (current) use of oral hypoglycemic drugs; Z79.82 Long term (current) use of aspirin; Z79.4 Long term (current) use of insulin; Z79.85 Long-term (current) use of injectable non-insulin antidiabetic drugs; Z79.02 Long term (current) use of antithrombotics/antiplatelets; Z87.891 Personal history of nicotine dependence
CPT/HCPCS: 36415; 74177; 74181; 80048; 80053; 82947; 83690; 83735; 85025; 85610; 94760; 96365-59; 96375; 96376; 99285-25; A9270; J1885; J2405; J2543; J3010; J3490; J7030; Q0177; Q9967